=== PATIENT | male | born 1995 | race American Indian/Alaskan Native ===

== ENCOUNTER 2016-11-13 02:43 | Observation (INO) | payer MEDICAID, OTHER ==
[2016-11-13 03:00] VITALS: BMI 23.3
--- NOTE | 2016-11-13 03:42 | ED PDOC ---
Arrival/HPI - General Chief Complaint: Upper Extremity Problem/Injury Time Seen by Provider: 11/13/16 02:57 Historian: Patient - History of Present Illness Narrative History of Present Illness (Text): 11/13/16 03:35 Kenyatta Chaves is a 21 year old male who presents to the emergency department complaining of pain and swelling to the left elbow since yesterday. Reports that symptoms presented after possible spider bite to the area. Reports that he drained some pus from the area and notes that pain is worsened with extension of elbow and movement. Denies any fever, chills, headache, dizziness, numbness/weakness of extremity, nausea, vomiting, diarrhea, or any other complaints. Time/Duration: 24 hours Symptom Onset: Sudden Symptom Course: Worsening Severity Level: Mild Activities at Onset: Light Context: Home Past Medical History - Provider Review Nursing Documentation Reviewed: Yes - Cardiac Hx Cardiac Disorders: No - Pulmonary Hx Respiratory Disorders: No - Neurological Hx Neurological Disorder: No - HEENT Hx HEENT Disorder: No - Renal Hx Renal Disorder: No - Endocrine/Metabolic Hx Endocrine Disorders: No - Hematological/Oncological Hx Blood Disorders: No - Integumentary Hx Dermatological Disorder: No - Musculoskeletal/Rheumatological Hx Musculoskeletal Disorders: No - Gastrointestinal Hx Gastrointestinal Disorders: No - Genitourinary/Gynecological Hx Genitourinary Disorders: No - Psychiatric Hx Psychophysiologic Disorder: No Hx Substance Use: No - Anesthesia Hx Anesthesia: No Hx Anesthesia Reactions: No Family/Social History - Physician Review Nursing Documentation Reviewed: Yes Family/Social History: No Known Family HX Smoking Status: Never Smoked Hx Alcohol Use: Yes Frequency of alcohol use: Socially Hx Substance Use: No Allergies/Home Meds Allergies/Adverse Reactions: Allergies No Known Allergies Allergy (Verified 11/13/16 03:05) Review of Systems - Physician Review All systems were reviewed & negative as marked: Yes - Review of Systems Constitutional: Normal. absent: Fatigue, Fevers Respiratory: Normal. absent: SOB, Cough Cardiovascular: Normal. absent: Chest Pain, Palpitations Genitourinary Male: Normal Musculoskeletal: Other (left elbow pain, erythema and swelling ) Neurological: Normal. absent: Headache, Dizziness Psychiatric: Normal Physical Exam Vital Signs Reviewed: Yes Vital Signs Temp Pulse Resp BP Pulse Ox 11/13/16 06:00 97.5 F L 80 17 125/79 99 11/13/16 04:53 98.6 F 78 15 122/80 100 11/13/16 03:00 97.9 F 84 16 135/119 H 98 11/13/16 02:59 97.9 F 84 16 135/119 H 98 Temperature: Afebrile Blood Pressure: Hypertensive Pulse: Regular Respiratory Rate: Normal Appearance: Positive for: Well-Appearing, Non-Toxic, Comfortable Pain Distress: None Mental Status: Positive for: Alert and Oriented X 3 - Systems Exam Head: Present: Atraumatic, Normocephalic Pupils: Present: PERRL Extroacular Muscles: Present: EOMI Conjunctiva: Present: Normal Mouth: Present: Moist Mucous Membranes Neck: Present: Normal Range of Motion. No: MIDLINE TENDERNESS, Paraspinal Tenderness Respiratory/Chest: Present: Clear to Auscultation, Good Air Exchange. No: Respiratory Distress, Accessory Muscle Use Cardiovascular: Present: Regular Rate and Rhythm, Normal S1, S2. No: Murmurs Abdomen: Present: Normal Bowel Sounds. No: Tenderness, Distention, Peritoneal Signs, Rebound, Guarding Back: Present: Normal Inspection Upper Extremity: Present: NORMAL PULSES, Swelling, Erythema, Neurovascularly Intact, Other (swelling/erythema/warmth left proximal forearm/elbow tracking to left upper arm/punctate areas left elbow) Lower Extremity: Present: Normal Inspection. No: Edema Neurological: Present: GCS=15, CN II-XII Intact, Speech Normal, Motor Func Grossly Intact, Normal Sensory Function Skin: Present: Warm, Dry, Normal Color. No: Rashes Psychiatric: Present: Alert, Oriented x 3, Normal Insight, Normal Concentration Medical Decision Making ED Course and Treatment: 11/13/16 03:46 Impression: A 21 year old male who presents to the emergency department for evaluation of left arm pain and swelling s/p spider bite yesterday. Plan: -- Labs -- Blood culture -- Reassess and disposition Progress Notes: 11/13/16 05:58 Will administer Vancomycin and Zosyn. Case discussed with Dr. Ch who agrees with the plan to admit patient to hospital for IV antibiotic administration for cellulitis. Accepts patient under hospitalist service. - Lab Interpretations Microbiology Results: Microbiology Results 11/13/16 05:30 Blood Blood Culture - Preliminary NO GROWTH AFTER 48 HOURS Lab Results: 11/13/16 03:40 11/13/16 03:40 Lab Results 11/13/16 03:40: WBC 7.6, RBC 4.88, Hgb 14.4, Hct 40.8 L, MCV 83.6, MCH 29.5, MCHC 35.3, RDW 13.0, Plt Count 252, MPV 10.0, Sodium 141, Potassium 3.9, Chloride 99, Carbon Dioxide 30, Anion Gap 16, BUN 15, Creatinine 0.8, Est GFR ( Amer) > 60, Est GFR (Non-Af Amer) > 60, Random Glucose 100, Calcium 10.0 I have reviewed the lab results: Yes - Medication Orders Current Medication Orders: Discontinued Medications Diphenhydramine HCl (Benadryl) 25 mg PO ONCE ONE Stop: 11/13/16 08:05 Last Admin: 11/13/16 08:26 Dose: 25 MG Piperacillin Sod/Tazobactam Sod (Zosyn 3.375 In Ns 100ml) 100 mls @ 200 mls/hr IV STAT STA PRN Reason: Protocol Stop: 11/13/16 05:33 Last Admin: 11/13/16 05:52 Dose: 200 MLS/HR eMAR Start Stop Document 11/13/16 05:52 RJR (Rec: 11/13/16 05:52 [facility] [id number] Intravenous Solution Start Date 11/13/16 Start Time 05:52 End Date 11/13/16 End time 06:52 Total Infusion Time 60 Vancomycin HCl (Vancomycin 1gm) 250 mls @ 133.333 mls/hr IVPB STAT STA PRN Reason: Protocol Stop: 11/13/16 06:56 Last Admin: 11/13/16 06:16 Dose: 133.333 MLS/HR eMAR Start Stop Document 11/13/16 06:16 RJR (Rec: 11/13/16 06:16 [facility]JR [facility] [id number] Intravenous Solution Start Date 11/13/16 Start Time 06:16 Ceftriaxone Sodium (Rocephin 1 Gram Ivpb) 100 mls @ 100 mls/hr IVPB DAILY RAMEZ PRN Reason: Protocol Last Admin: 11/13/16 09:50 Dose: 100 MLS/HR eMAR Start Stop Document 11/13/16 09:50 MV (Rec: 11/13/16 09:50 MV [id number]) Intravenous Solution Start Date 11/13/16 Start Time 09:50 Vancomycin HCl (Vancomycin 500mg In Ns) 100 mls @ 200 mls/hr IVPB Q12 RAMEZ PRN Reason: Protocol Stop: 11/20/16 18:01 Vancomycin HCl (Vancomycin 1gm) 250 mls @ 167 mls/hr IVPB Q12H RAMEZ PRN Reason: Protocol Ketorolac Tromethamine (Toradol) 15 mg IVP Q4 PRN PRN Reason: Pain, moderate (4-7) Last Admin: 11/13/16 10:05 Dose: 15 MG MAR Pain Assessment Document 11/13/16 10:05 MV (Rec: 11/13/16 10:05 MV [place] [id number]) Pain Reassessment Is this a pain reassessment? No IVP Administration Document 11/13/16 10:05 MV (Rec: 11/13/16 10:05 MV [place] [id number]) Charges for Administration # of IVP Administrations 1 Ondansetron HCl (Zofran Odt) 4 mg PO Q8H PRN PRN Reason: Nausea/Vomiting Pantoprazole Sodium (Protonix Inj) 40 mg IVP DAILY [facility] Last Admin: 11/13/16 09:50 Dose: 40 MG IVP Administration Document 11/13/16 09:50 MV (Rec: 11/13/16 09:50 MV [place] [id number]) Charges for Administration # of IVP Administrations 1 - Scribe Statement The provider has reviewed the documentation as recorded by the Chaz Cochran Provider Attestation: All medical record entries made by the Chaz were at my direction and personally dictated by me. I have reviewed the chart and agree that the record accurately reflects my personal performance of the history, physical exam, medical decision making, and the department course for this patient. I have also personally directed, reviewed, and agree with the discharge instructions and disposition. Disposition/Present on Arrival - Present on Arrival Any Indicators Present on Arrival: No History of DVT/PE: No History of Uncontrolled Diabetes: No Urinary Catheter: No History of Decub. Ulcer: No History Surgical Site Infection Following: None - Disposition Have Diagnosis and Disposition been Completed?: Yes Diagnosis: Cellulitis of left elbow Disposition: HOSPITALIZED Disposition Time: 05:35 Condition: GOOD
[2016-11-13 04:19] LABS: HEMATOCRIT 40.8 % (42.0-52.0); MEAN CELL VOLUME 83.6 fL (80.0-105.0); MEAN CORPUSCULAR HEMOGLOBIN 29.5 pg (25.0-35.0); MEAN CORPUSCULAR HGB CONC 35.3 g/dl (31.0-37.0); WHITE BLOOD COUNT 7.6 10^3/ul (4.5-11.0)
[2016-11-13 04:20] LABS: BLOOD UREA NITROGEN 15 mg/dL (7-21); CARBON DIOXIDE 30 mmol/L (21-33); CHLORIDE 99 mmol/L (95-110); GFR AFRICAN-AMERICAN > 60; GLUCOSE,RANDOM 100 mg/dL (70-110); POTASSIUM 3.9 mmol/L (3.6-5.0); SODIUM 141 mmol/L (132-148)
[2016-11-13 04:54] VITALS: PULSE 78; O2SAT 100
[2016-11-13] MEDS ORDERED: Vancomycin 1gm in NS 250ml 250 ML IVPB STA (05:04)
[2016-11-13] MEDS ORDERED: Piperacillin/Tazobact 3.375 gm 100 ML IV STA (05:04)
--- NOTE | 2016-11-13 05:42 | CP.PCM.HP ---
<Daniella Ashton - Last Filed: 11/13/16 06:41> History of Present Illness - History of Present Illness History of Present Illness: PGY-[address] Ch Admission: L elbow Cellulitis, r/o septic joint, r/o osteomyelitis. Unlikely necrotising fasciitis 21 year old male, Hx of chlamydia, who presents to the emergency department complaining of pain and swelling to the left elbow since yesterday. Reports that symptoms presented after possible spider bite to the area. Pt was asleep, awoken from a sudden pain on L elbow, saw a black house spider near on the wall close to him. Denies brown recruise or black . Pt drained some pus from the area and notes that, in a day, the L elbow pain has spread up his arm, warmth, and "bad pain". The pain is worsened to 9/10 with extension of elbow and movement and vomiting 4 times with digested food. Upon ED arrival, Vital signs stable. CBC and BMP within normal limits. Received blood culture. Treated with vanco and zosyn x 1 at ED ROS - (+) N/V Denies any fever, chills, headache, dizziness, numbness/weakness of extremity , diarrhea, or any other complaints. PMH Chlamydia (may or may not have gonorrhea) 5 years ago PSH None FH Mom, 5 years ago, giving Dad, heart problem SH 3 cigarretts a day x 8 years Hard liquor ([place]) 1 glass per month 2 bags of marijuana per day, not laced All NKDA Med None PMD None. Haven't seen doctor for a long time Present on Admission - Present on Admission Any Indicators Present on Admission: No Past Patient History - Past Social History Smoking Status: Never Smoked - CARDIAC Hx Cardiac Disorders: No - PULMONARY Hx Respiratory Disorders: No - NEUROLOGICAL Hx Neurological Disorder: No - HEENT Hx HEENT Problems: No - RENAL Hx Chronic Kidney Disease: No - ENDOCRINE/METABOLIC Hx Endocrine Disorders: No - HEMATOLOGICAL/ONCOLOGICAL Hx Blood Disorders: No - INTEGUMENTARY Hx Dermatological Problems: No - MUSCULOSKELETAL/RHEUMATOLOGICAL Hx Musculoskeletal Disorders: No - GASTROINTESTINAL Hx Gastrointestinal Disorders: No - GENITOURINARY/GYNECOLOGICAL Hx Genitourinary Disorders: No - PSYCHIATRIC Hx Psychophysiologic Disorder: No Hx Substance Use: No - SURGICAL HISTORY Hx Surgeries: No - ANESTHESIA Hx Anesthesia: No Hx Anesthesia Reactions: No Meds Allergies/Adverse Reactions: Allergies Allergy/AdvReac Type Severity Reaction Status Date / Time No Known Allergies Allergy Verified 11/13/16 03:05 Physical Exam - Constitutional Appears: No Acute Distress - Head Exam Head Exam: ATRAUMATIC, NORMOCEPHALIC - Eye Exam Eye Exam: EOMI, Normal appearance Pupil Exam: NORMAL ACCOMODATION - ENT Exam ENT Exam: Mucous Membranes Moist - Neck Exam Neck exam: Positive for: Normal Inspection. Negative for: Meningismus - Respiratory Exam Respiratory Exam: Clear to Auscultation Bilateral, NORMAL BREATHING PATTERN. absent: Rales, Rhonchi, Wheezes - Cardiovascular Exam Cardiovascular Exam: REGULAR RHYTHM, +S1, +S2. absent: Systolic Murmur - GI/Abdominal Exam GI & Abdominal Exam: Normal Bowel Sounds, Soft. absent: Distended, Firm, Guarding, Rigid, Tenderness - Extremities Exam Extremities exam: Positive for: normal capillary refill, normal inspection, pedal pulses present. Negative for: calf tenderness Additional comments: L elbow: 2 pin-point nodules with mild white scaling. Extremely tender. Increase warmth with erythema. Extension limited by pain. Shoulder ROM limited by elbow pain. - Neurological Exam Neurological exam: Alert, Oriented x3 - Psychiatric Exam Psychiatric exam: Normal Affect, Normal Mood - Skin Skin Exam: Dry, Warm Results - Vital Signs Recent Vital Signs: Last Vital Signs Temp 98.6 F 11/13/16 04:53 Pulse 78 11/13/16 04:53 Resp 15 11/13/16 04:53 BP 122/80 11/13/16 04:53 Pulse Ox 100 11/13/16 04:53 - Labs Result Diagrams: 11/13/16 03:40 11/13/16 03:40 Labs: Laboratory Results - last 24 hr 11/13/16 03:40 WBC 7.6 RBC 4.88 Hgb 14.4 Hct 40.8 L MCV 83.6 MCH 29.5 MCHC 35.3 RDW 13.0 Plt Count 252 MPV 10.0 Sodium 141 Potassium 3.9 Chloride 99 Carbon Dioxide 30 Anion Gap 16 BUN 15 Creatinine 0.8 Est GFR ( Amer) > 60 Est GFR (Non-Af Amer) > 60 Random Glucose 100 Calcium 10.0 Assessment & Plan - Assessment and Plan (Free Text) Plan: 21 year old male, Hx of chlamydia, who presents to the emergency department complaining of pain and swelling to the left elbow since yesterday. L elbow Cellulitis, r/o septic joint, r/o osteomyelitis. Unlikely necrotising fasciitis L elbow cellulitis, r/o septic joint, r/o osteomyelitis - unlikely necrotitizing fascittis - Ortho consult for arthrocentesis - Vanco and ceftriaxone Vomiting, likely vagovasal reaction from pain - Zofran - Clear liquid for now - Toradol PRN Prophylaxis - SCD - protonix S/R/D/w Dr. Ch - Date & Time Date: 11/13/16 Time: 06:28 <Erick Ch MD - Last Filed: 11/13/16 06:58> Results - Vital Signs Recent Vital Signs: Last Vital Signs Temp 98.2 F 11/13/16 06:34 Pulse 78 11/13/16 06:34 Resp 16 11/13/16 06:34 BP 112/78 11/13/16 06:34 Pulse Ox 100 11/13/16 06:34 - Labs Result Diagrams: 11/13/16 03:40 11/13/16 03:40 Attending/Attestation - Attestation I have personally seen and examined this patient.: Yes I have fully participated in the care of the patient.: Yes I have reviewed all pertinent clinical information: Yes Notes (Text): 11/13/16 06:56 -I agree with the above H&P completed by the resident physician. Briefly, the patient is a 21 year old man with a remote history of chlamydia who presents with acute left elbow edema, pain, tenderness and erythema, concerning for possible septic joint. We will start empiric IV Vanco and Ceftriaxone. Also, ortho has been consulted for arthrocentesis in order to further evaluate for septic joint.
[2016-11-13 06:35] VITALS: BP 112/78; RESP 16; TEMP 98.2
[2016-11-13] MEDS ORDERED: cefTRIAXone 1 gm 100 ML IVPB SCH (10:00)
--- NOTE | 2016-11-13 11:29 | RAD ---
PROCEDURE: Radiographs of the left elbow. HISTORY: r/o fracture COMPARISON: No prior. FINDINGS: BONES: Normal. No fracture. JOINTS: Normal. No osteoarthritis. SOFT TISSUES: Normal. JOINT EFFUSION: None. OTHER FINDINGS: None IMPRESSION: Unremarkable radiographs of the left elbow.
--- NOTE | 2016-11-13 11:32 | RAD ---
PROCEDURE: Radiographs of the Left Forearm HISTORY: r/o fx COMPARISON: None available. TECHNIQUE: Frontal and lateral views obtained. FINDINGS: BONES: No fracture or destructive lesion. JOINT SPACES: Unremarkable. OTHER FINDINGS: None. IMPRESSION: Unremarkable radiographs of the left forearm.
--- NOTE | 2016-11-13 15:47 | CP.PCM.CON ---
History of Present Illness - History of Present Illness History of Present Illness: Patient was seen earlier this morning (Around 9 in the morning) 21 year old male with PMH of chlamydial infection came in to [facility] ED because of swelling of his left elbow since yesterday which progressively became worse. He does not recall if he had any insect bites but denies any specific trauma to the area. He also denies injecting with needles. He denies fever or chills, no nausea or vomiting, no chest pain, no SOB, no sore throat, no cough or colds, no abdominal pain, no diarrhea, no dysuria. He denies any animal contacts, no pets at home, no travel outside of [place] in the past 3 months, no travel to wooded areas or bodies of water. Infectious Diseases consult is requested to further evaluate and manage. Review of Systems - Review of Systems All systems: reviewed and no additional remarkable complaints except (as per HPI ) Past Patient History - Past Medical History & Family History Past Medical History?: Yes Pertinent Family History: father has heart disease - Past Social History Smoking Status: Current Some Days Smoker Alcohol: Occasional Drugs: Cannabis Home Situation {Lives}: With Family - CARDIAC Hx Cardiac Disorders: No - PULMONARY Hx Respiratory Disorders: No - NEUROLOGICAL Hx Neurological Disorder: No - HEENT Hx HEENT Problems: No - RENAL Hx Chronic Kidney Disease: No - ENDOCRINE/METABOLIC Hx Endocrine Disorders: No - HEMATOLOGICAL/ONCOLOGICAL Hx Blood Disorders: No - INTEGUMENTARY Hx Dermatological Problems: No - MUSCULOSKELETAL/RHEUMATOLOGICAL Hx Musculoskeletal Disorders: No - GASTROINTESTINAL Hx Gastrointestinal Disorders: No - GENITOURINARY/GYNECOLOGICAL Hx Genitourinary Disorders: No - PSYCHIATRIC Hx Psychophysiologic Disorder: No Hx Substance Use: No - SURGICAL HISTORY Hx Surgeries: No - ANESTHESIA Hx Anesthesia: No Hx Anesthesia Reactions: No Meds Allergies/Adverse Reactions: Allergies Allergy/AdvReac Type Severity Reaction Status Date / Time No Known Allergies Allergy Verified 11/13/16 03:05 - Medications Medications: Current Medications Ceftriaxone Sodium (Rocephin 1 Gram Ivpb) 100 mls @ 100 mls/hr IVPB DAILY RAMEZ PRN Reason: Protocol Ketorolac Tromethamine (Toradol) 15 mg IVP Q4 PRN PRN Reason: Pain, moderate (4-7) Ondansetron HCl (Zofran Odt) 4 mg PO Q8H PRN PRN Reason: Nausea/Vomiting Pantoprazole Sodium (Protonix Inj) 40 mg IVP DAILY RAMEZ Physical Exam - Constitutional Appears: Non-toxic, No Acute Distress - Head Exam Head Exam: NORMAL INSPECTION - ENT Exam ENT Exam: Mucous Membranes Moist - Neck Exam Neck exam: Negative for: Lymphadenopathy, Meningismus - Respiratory Exam Respiratory Exam: Decreased Breath Sounds. absent: Rales, Rhonchi - Cardiovascular Exam Cardiovascular Exam: +S1, +S2 - GI/Abdominal Exam GI & Abdominal Exam: Soft. absent: Tenderness - Extremities Exam Additional comments: left elbow with slightly decreased range of motion; with swelling and erythema over the forearm area and just above the elbow; no note of fluid wave of the elbow joint Results - Vital Signs Recent Vital Signs: Last Vital Signs Temp 98.2 F 11/13/16 06:34 Pulse 78 11/13/16 06:34 Resp 16 11/13/16 06:34 BP 112/78 11/13/16 06:34 Pulse Ox 100 11/13/16 06:34 - Labs Result Diagrams: 11/13/16 03:40 11/13/16 03:40 Assessment & Plan - Assessment and Plan (Free Text) Plan: Assessment Left elbow area skin and skin structure infection (cellulitis), less likely septic arthritis of the joint history of chlamydial infection Plan Patient has been started on Vancomycin and Zosyn pending blood cx Check HIV status of the patient
[2016-11-13] MEDS ORDERED: Vancomycin 500mg in NS 100 ML IVPB SCH (18:00)
[2016-11-13] MEDS ORDERED: Vancomycin 1gm in NS 250ml 250 ML IVPB SCH (18:45)
== END 2016-11-13 14:04 | disposition left against medical advice (07) ==
LOC: ED 02:43 → ERH 05:36 → 3RSO 06:30
PROVIDERS: ADMIT Hospitalist; ATTEND Internal Medicine
DX: L03.114 Cellulitis of left upper limb (principal); R11.2 Nausea with vomiting, unspecified; Z86.19 Personal history of other infectious and parasitic diseases
CPT/HCPCS: 73080; 73090; 80048; 85027; 86140; 87040; 96360; 99283; C9113; G0378; J0696; J1885; J2543

== ENCOUNTER 2016-11-15 20:56 | Observation (INO) | payer MEDICAID, OTHER ==
[2016-11-15 21:11] VITALS: BMI 22.6
[2016-11-15 21:22] VITALS: RESP 18
[2016-11-15] MEDS ORDERED: Piperacillin/Tazobact 3.375 gm 100 ML IVPB STA (21:39)
[2016-11-15] MEDS ORDERED: Vancomycin 1gm in NS 250ml 250 ML IVPB STA (21:39)
--- NOTE | 2016-11-15 22:07 | ED PDOC ---
Arrival/HPI - General Chief Complaint: Upper Extremity Problem/Injury Time Seen by Provider: 11/15/16 21:07 Historian: Patient - History of Present Illness Narrative History of Present Illness (Text): 11/15/16 22:29 21yr old male presents today with continued left elbow pain. pt states he was seen in the ER 2 days ago and admitted for left arm cellulitis. pt signed out AMA and presents today for readmission. pt c/o pain and swelling to left elbow, now with purulent discharge. c/o pain to posterior aspect of elbow; pt denies trauma or injury. pt states swelling to upper arm seems to have improved but the swelling and erythema is now increasing to the forearm. Past Medical History - Provider Review Nursing Documentation Reviewed: Yes - Travel History Have you recently traveled outside [place] w/in the past 3 mons?: No - Infectious Disease Hx of Infectious Diseases: None - Cardiac Hx Cardiac Disorders: No - Pulmonary Hx Respiratory Disorders: No - Neurological Hx Neurological Disorder: No - HEENT Hx HEENT Disorder: No - Renal Hx Renal Disorder: No - Endocrine/Metabolic Hx Endocrine Disorders: No - Hematological/Oncological Hx Blood Disorders: No - Integumentary Hx Dermatological Disorder: No - Musculoskeletal/Rheumatological Hx Musculoskeletal Disorders: No - Gastrointestinal Hx Gastrointestinal Disorders: No - Genitourinary/Gynecological Hx Genitourinary Disorders: No - Psychiatric Hx Psychophysiologic Disorder: No Hx Substance Use: No - Anesthesia Hx Anesthesia: No Hx Anesthesia Reactions: No Family/Social History - Physician Review Nursing Documentation Reviewed: Yes Family/Social History: Unknown Family HX Smoking Status: Light Smoker < 10 Cigarettes Daily Hx Alcohol Use: Yes Frequency of alcohol use: Socially Hx Substance Use: No Substance used: Marijuana Allergies/Home Meds Allergies/Adverse Reactions: Allergies No Known Allergies Allergy (Verified 11/13/16 03:05) Home Medications: Home Meds Medication Instructions Recorded Confirmed No Known Home Med 11/15/16 11/15/16 Review of Systems - Review of Systems Constitutional: absent: Fatigue, Fevers Respiratory: absent: Cough Cardiovascular: absent: Chest Pain Gastrointestinal: absent: Abdominal Pain, Nausea, Vomiting Genitourinary Male: absent: Dysuria Musculoskeletal: Arthralgias Skin: Abscess, Cellulitis Neurological: absent: Headache, Dizziness Psychiatric: absent: Anxiety, Depression Physical Exam Vital Signs Reviewed: Yes Vital Signs Temp Pulse Resp BP Pulse Ox 11/15/16 21:16 98.0 F 92 H 18 116/69 100 Temperature: Afebrile Blood Pressure: Normal Pulse: Regular Respiratory Rate: Normal Appearance: Positive for: Well-Appearing, Non-Toxic, Comfortable Pain Distress: None Mental Status: Positive for: Alert and Oriented X 3 - Systems Exam Head: Present: Atraumatic Mouth: Present: Moist Mucous Membranes Neck: Present: Normal Range of Motion Respiratory/Chest: Present: Clear to Auscultation, Good Air Exchange. No: Respiratory Distress, Accessory Muscle Use Cardiovascular: Present: Regular Rate and Rhythm, Normal S1, S2. No: Murmurs Upper Extremity: Present: NORMAL PULSES, Tenderness (left elbow; + edema, erythema, tenderness and purulent discharge noted from posterior aspect of elbow ; + pain with rom of elbow; sensation and distal pulses intact. erythema and edema extends into forearm), Swelling, Erythema, Neurovascularly Intact, Capillary Refill < 2s. No: Normal ROM, Deformity Skin: Present: Warm, Dry Psychiatric: Present: Alert Medical Decision Making ED Course and Treatment: 11/15/16 22:41 21yr old male with left elbow cellulitis and abscess with pain and swelling. signed out AMA from hospital; presents for readmission. toradol cbc; wnl cmp wnl Vanco and zosyn given IV case discussed with medical laboratory specialist and dr. north. will admit observational status to med/surg for cellulitis/abscess of left elbow. 11/15/16 23:48 impression; cellulitis, abscess elbow admit observational status to med/surg - Lab Interpretations Lab Results: 11/15/16 22:09 11/15/16 22:09 Lab Results 11/15/16 22:09: WBC 6.1, RBC 4.79, Hgb 14.1, Hct 40.3 L, MCV 84.1, MCH 29.4, MCHC 35.0, RDW 13.0, Plt Count 242, MPV 9.1, Gran % 57.1, Lymph % (Auto) 33.4, [place] % (Auto) 7.8 H, Eos % (Auto) 1.5, Baso % (Auto) 0.2, Gran # 3.46, Lymph # 2.0, [place] # 0.5, Eos # 0.1, Baso # 0.01, Sodium 143, Potassium 4.3, Chloride 98 , Carbon Dioxide 30, Anion Gap 19, BUN 19, Creatinine 0.9, Est GFR ( Amer ) > 60, Est GFR (Non-Af Amer) > 60, Random Glucose 84, Calcium 10.7 H, Total Bilirubin 1.5 H, AST 31, ALT 21, Alkaline Phosphatase 70, Total Protein 9.0 H, Albumin 4.8, Globulin 4.1, Albumin/Globulin Ratio 1.2 - Medication Orders Current Medication Orders: Sodium Chloride (Sodium Chloride 0.9%) 1,000 mls @ 100 mls/hr IV .Q10H RAMEZ Ceftriaxone Sodium (Rocephin 1 Gram Ivpb) 100 mls @ 100 mls/hr IVPB DAILY RAMEZ PRN Reason: Protocol Ibuprofen (Motrin Tab) 400 mg PO Q6H PRN PRN Reason: Pain, moderate (4-7) Discontinued Medications Piperacillin Sod/Tazobactam Sod (Zosyn 3.375 In Ns 100ml) 100 mls @ 200 mls/hr IVPB STAT STA PRN Reason: Protocol Stop: 11/15/16 22:08 Last Admin: 11/15/16 22:11 Dose: 200 MLS/HR eMAR Start Stop Document 11/15/16 22:11 [facility] (Rec: 11/15/16 22:11 [id number]) Intravenous Solution Start Date 11/15/16 Start Time 22:11 End Date 11/15/16 End time 22:41 Total Infusion Time 30 Vancomycin HCl (Vancomycin 1gm) 250 mls @ 167 mls/hr IVPB STAT STA PRN Reason: Protocol Stop: 11/15/16 23:08 Last Admin: 11/15/16 22:48 Dose: 167 MLS/HR eMAR Start Stop Document 11/15/16 22:48 [facility] (Rec: 11/15/16 22:49 [id number]) Intravenous Solution Start Date 11/15/16 Start Time 22:48 End Date 11/16/16 End time 00:18 Total Infusion Time 90 Ketorolac Tromethamine (Toradol) 30 mg IVP STAT STA Stop: 11/15/16 22:39 Last Admin: 11/15/16 23:45 Dose: Disposition/Present on Arrival - Present on Arrival Any Indicators Present on Arrival: No History of DVT/PE: No History of Uncontrolled Diabetes: No Urinary Catheter: No History of Decub. Ulcer: No History Surgical Site Infection Following: None - Disposition Have Diagnosis and Disposition been Completed?: Yes Diagnosis: Cellulitis of left elbow, Abscess Disposition: HOSPITALIZED Disposition Time: 22:06 Patient Plan: Admission Patient Problems: Current Active Problems Problem Status Diagnosed Cellulitis of left elbow Acute Condition: FAIR
[2016-11-15 22:10] LABS: ADD MANUAL DIFF? NO
[2016-11-15 22:22] LABS: BASO # 0.01 K/mm3 (0.0-2.0); BASO % 0.2 % (0.0-3.0); EOS # 0.1 (0.0-0.7); EOS % 1.5 % (1.5-5.0); GRAN # 3.46 (1.4-6.5); GRAN % 57.1 % (50.0-68.0); HEMATOCRIT 40.3 % (42.0-52.0); LYMPH % 33.4 % (22.0-35.0); MEAN CELL VOLUME 84.1 fL (80.0-105.0); MEAN CORPUSCULAR HEMOGLOBIN 29.4 pg (25.0-35.0); MEAN PLATELET VOLUME 9.1 fl (7.0-11.0); MONO # 0.5 (0.1-0.6); MONO % 7.8 % (1.0-6.0); PLATELET COUNT 242 10^3/uL (120.0-450.0); WHITE BLOOD COUNT 6.1 10^3/ul (4.5-11.0)
[2016-11-15 22:27] LABS: ALB/GLOB RATIO 1.2 (1.1-1.8); ALKALINE PHOSPHATASE 70 U/L (38-133); ALT/SGPT 21 U/L (7-56); AST/SGOT 31 U/L (15-59); BILIRUBIN,TOTAL 1.5 mg/dL (0.2-1.3); BLOOD UREA NITROGEN 19 mg/dL (7-21); CALCIUM 10.7 mg/dL (8.4-10.5); CARBON DIOXIDE 30 mmol/L (21-33); CHLORIDE 98 mmol/L (98-107); GFR AFRICAN-AMERICAN > 60; GLUCOSE,RANDOM 84 mg/dL (70-110); POTASSIUM 4.3 mmol/L (3.6-5.0); SODIUM 143 mmol/L (132-148)
--- NOTE | 2016-11-15 23:43 | CP.PCM.HP ---
<Ricci Ordaz - Last Filed: 11/15/16 23:39> History of Present Illness - History of Present Illness History of Present Illness: This is a 21 yo male with remote hx of chlamydia presenting with left elbow pain x 4 days. Pt woke up sravan morning with soreness and some redness to left elbow. Pt thinks spider may have bitten him. Pain and redness were getting worse along with swelling and some swelling to upper left arm. Pt had subjective fever, and some chills. He came into ER and was admitted to hospital. He was started on vanco and rocephin. However, pt left ama because brother . Pt was at home and felt the elbow was getting better and starting to cool off. He used home remedy of flour mixed with milk as he saw this on internet. However, swelling and pain was getting worse and he returned to ER. No trauma, no recent travel, no travel to wooded areas. Denies vomiting, chest pain, drug use, other systemic sx. PMH: chlamydia PSH: None Allergies: NKDA FH: denies Home meds: none Social hx: current smoker. 3 cigs/ day. For 1 yr. Social drinker. Marijuana user. Past use of percocet. Does not work. Lives with sister. Present on Admission - Present on Admission Any Indicators Present on Admission: No History of DVT/PE: No History of Uncontrolled Diabetes: No Urinary Catheter: No Decubitus Ulcer Present: No Review of Systems - Review of Systems All systems: reviewed and no additional remarkable complaints except Review of Systems: Negative except as per HPI. Past Patient History - Infectious Disease Hx of Infectious Diseases: None - Tetanus Immunizations Tetanus Immunization: Unknown - Past Medical History & Family History Past Medical History?: Yes Past Family History: Reviewed and not pertinent - Past Social History Smoking Status: Light Smoker < 10 Cigarettes Daily Chewing Tobacco Use: No Cigar Use: No Alcohol: Social Drugs: Cannabis Home Situation {Lives}: With Family Domestic Violence: Negative - CARDIAC Hx Cardiac Disorders: No - PULMONARY Hx Respiratory Disorders: No - NEUROLOGICAL Hx Neurological Disorder: No - HEENT Hx HEENT Problems: No - RENAL Hx Chronic Kidney Disease: No - ENDOCRINE/METABOLIC Hx Endocrine Disorders: No - HEMATOLOGICAL/ONCOLOGICAL Hx Blood Disorders: No - INTEGUMENTARY Hx Dermatological Problems: No - MUSCULOSKELETAL/RHEUMATOLOGICAL Hx Musculoskeletal Disorders: No - GASTROINTESTINAL Hx Gastrointestinal Disorders: No - GENITOURINARY/GYNECOLOGICAL Hx Genitourinary Disorders: No - PSYCHIATRIC Hx Psychophysiologic Disorder: No Hx Substance Use: No - SURGICAL HISTORY Hx Surgeries: No - ANESTHESIA Hx Anesthesia: No Hx Anesthesia Reactions: No Meds Allergies/Adverse Reactions: Allergies Allergy/AdvReac Type Severity Reaction Status Date / Time No Known Allergies Allergy Verified 11/13/16 03:05 Physical Exam - Constitutional Appears: Non-toxic, No Acute Distress - Head Exam Head Exam: ATRAUMATIC, NORMAL INSPECTION, NORMOCEPHALIC - Eye Exam Eye Exam: EOMI - ENT Exam ENT Exam: Mucous Membranes Moist - Neck Exam Neck exam: Positive for: Normal Inspection - Respiratory Exam Respiratory Exam: Clear to Auscultation Bilateral, NORMAL BREATHING PATTERN - Cardiovascular Exam Cardiovascular Exam: REGULAR RHYTHM - GI/Abdominal Exam GI & Abdominal Exam: Normal Bowel Sounds, Soft. absent: Tenderness - Extremities Exam Extremities exam: Positive for: tenderness. Negative for: normal inspection - Back Exam Back exam: NORMAL INSPECTION - Neurological Exam Neurological exam: Alert, Oriented x3 - Psychiatric Exam Psychiatric exam: Normal Affect, Normal Mood - Skin Skin Exam: Erythema Additional comments: Cellulitis with abscess left elbow, minimal swelling left forearm, pain with movement of left elbow and arm Results - Vital Signs Recent Vital Signs: Last Vital Signs Temp 98.0 F 11/15/16 21:16 Pulse 92 H 11/15/16 21:16 Resp 18 11/15/16 21:16 BP 116/69 11/15/16 21:16 Pulse Ox 100 11/15/16 21:16 - Labs Result Diagrams: 11/15/16 22:09 11/15/16 22:09 Labs: Laboratory Results - last 24 hr 11/15/16 22:09 WBC 6.1 RBC 4.79 Hgb 14.1 Hct 40.3 L MCV 84.1 MCH 29.4 MCHC 35.0 RDW 13.0 Plt Count 242 MPV 9.1 Gran % 57.1 Lymph % (Auto) 33.4 [place] % (Auto) 7.8 H Eos % (Auto) 1.5 Baso % (Auto) 0.2 Gran # 3.46 Lymph # 2.0 [place] # 0.5 Eos # 0.1 Baso # 0.01 Sodium 143 Potassium 4.3 Chloride 98 Carbon Dioxide 30 Anion Gap 19 BUN 19 Creatinine 0.9 Est GFR ( Amer) > 60 Est GFR (Non-Af Amer) > 60 Random Glucose 84 Calcium 10.7 H Total Bilirubin 1.5 H AST 31 ALT 21 Alkaline Phosphatase 70 Total Protein 9.0 H Albumin 4.8 Globulin 4.1 Albumin/Globulin Ratio 1.2 Assessment & Plan - Assessment and Plan (Free Text) Assessment: This is a 21 yo male with pmh chlamydia presenting with elbow pain and erythema secondary to cellulitis and abscess 1. Cellulitis/abscess -warm compresses q 2 hrs for 15 mins -NS 100 cc/hr -rocephin 1 g daily -joint does not appear septic; if concern arises, will consult ortho -regular diet -ibuprofen for pain 2. GI/DVT ppx -no indicated at this time -regular diet -encourage early ambulation dw Dr. Luther <Eddie Luther Q - Last Filed: 11/19/16 19:32> Results - Vital Signs Recent Vital Signs: Last Vital Signs Temp 97.8 F 11/16/16 08:45 Pulse 70 11/16/16 08:45 Resp 18 11/16/16 08:45 BP 116/72 11/16/16 08:45 Pulse Ox 95 11/16/16 08:45 - Labs Result Diagrams: 11/15/16 22:09 11/15/16 22:09 Attending/Attestation - Attestation I have personally seen and examined this patient.: Yes I have fully participated in the care of the patient.: Yes I have reviewed all pertinent clinical information: Yes
[2016-11-15] MEDS ORDERED: Sodium Chloride 0.9% 1,000 ML IV SCH (23:45)
[2016-11-16 02:08] VITALS: TEMP 97.8
[2016-11-16 08:46] VITALS: BP 116/72; PULSE 70; O2SAT 95
[2016-11-16] MEDS ORDERED: cefTRIAXone 1 gm 100 ML IVPB SCH (10:00)
[2016-11-16] MEDS ORDERED: Vancomycin 1gm in NS 250ml 250 ML IVPB SCH (10:15)
[2016-11-16] MEDS ORDERED: Ampicillin/Sulbactam 3 GM in Sodium Chloride 0.9% 100 ML IVPB SCH (12:00)
--- NOTE | 2016-11-16 14:06 | CP.PCM.CON ---
History of Present Illness - History of Present Illness History of Present Illness: 21 year old male with PMH of chlamydial infection was recently admitted here in [facility] because of left elbow area cellulitis 2 days ago. He was being given antibiotics then but he signed out against medical advice. He now comes back to have it treated and has noted since then that there is now discharge and pus-looking material coming out. He denies fever or chills, no new trauma to the area, no pets at home, no travel outside of [place] in the past 3 months, no travel to wooded areas or bodies of water. He does not complain of nausea or vomiting, no chest pain, no SOB, no sore throat, no cough or colds, no abdominal pain, no diarrhea, no dysuria. Infectious Diseases consult is requested to further evaluate and manage. Review of Systems - Review of Systems All systems: reviewed and no additional remarkable complaints except (as per HPI ) Past Patient History - Infectious Disease Hx of Infectious Diseases: None - Tetanus Immunizations Tetanus Immunization: Unknown - Past Medical History & Family History Past Medical History?: Yes Past Family History: Reviewed and not pertinent - Past Social History Smoking Status: Light Smoker < 10 Cigarettes Daily Alcohol: None Drugs: Denies Home Situation {Lives}: With Family - CARDIAC Hx Cardiac Disorders: No - PULMONARY Hx Respiratory Disorders: No - NEUROLOGICAL Hx Neurological Disorder: No - HEENT Hx HEENT Problems: No - RENAL Hx Chronic Kidney Disease: No - ENDOCRINE/METABOLIC Hx Endocrine Disorders: No - HEMATOLOGICAL/ONCOLOGICAL Other/Comment: Chlamydia - INTEGUMENTARY Hx Dermatological Problems: No - MUSCULOSKELETAL/RHEUMATOLOGICAL Hx Falls: No - GASTROINTESTINAL Hx Gastrointestinal Disorders: No - GENITOURINARY/GYNECOLOGICAL Hx Genitourinary Disorders: No - PSYCHIATRIC Hx Substance Use: Yes (Marijuana.) - SURGICAL HISTORY Hx Surgeries: No - ANESTHESIA Hx Anesthesia: No Hx Anesthesia Reactions: No Meds Home Medications: Home Medication List Medication Instructions Recorded Confirmed Type Amoxicillin/Clavulanate [Augmentin 1 tab PO Q12H #20 tab 11/16/16 Rx 500 MG-125 MG] Doxycycline Monohydrate 100 mg PO DAILY #10 tablet 11/16/16 Rx Allergies/Adverse Reactions: Allergies Allergy/AdvReac Type Severity Reaction Status Date / Time No Known Allergies Allergy Verified 11/13/16 03:05 - Medications Medications: Current Medications Sodium Chloride (Sodium Chloride 0.9%) 1,000 mls @ 100 mls/hr IV .Q10H [facility] Last Admin: 11/15/16 23:45 Dose: 100 mls/hr Ampicillin Sodium/Sulbactam (Sodium 3 gm/ Sodium Chloride) 100 mls @ 200 mls/ hr IVPB Q6 RAMEZ PRN Reason: Protocol Stop: 11/23/16 12:01 Vancomycin HCl (Vancomycin 1gm) 250 mls @ 167 mls/hr IVPB Q12H RAMEZ PRN Reason: Protocol Ibuprofen (Motrin Tab) 400 mg PO Q6H PRN PRN Reason: Pain, moderate (4-7) Physical Exam - Constitutional Appears: Non-toxic, No Acute Distress - Head Exam Head Exam: NORMAL INSPECTION - ENT Exam ENT Exam: Mucous Membranes Moist - Neck Exam Neck exam: Negative for: Lymphadenopathy, Meningismus - Respiratory Exam Respiratory Exam: Decreased Breath Sounds - Cardiovascular Exam Cardiovascular Exam: +S1, +S2 - GI/Abdominal Exam GI & Abdominal Exam: Soft. absent: Tenderness - Extremities Exam Additional comments: left elbow with dressings in place; note of some serosanguinous discharge from the area Results - Vital Signs Recent Vital Signs: Last Vital Signs Temp 97.8 F 11/16/16 08:45 Pulse 70 11/16/16 08:45 Resp 18 11/16/16 08:45 BP 116/72 11/16/16 08:45 Pulse Ox 95 11/16/16 08:45 - Labs Result Diagrams: 11/15/16 22:09 11/15/16 22:09 Assessment & Plan - Assessment and Plan (Free Text) Plan: Assessment Left elbow area skin and skin structure infection (cellulitis), purulent history of chlamydial infection Plan Patient has been started on Vancomycin and Unasyn pending blood cx, wound cx HIV status of the patient is negative Will monitor clinical response while the patient is in the hospital
--- NOTE | 2016-11-16 15:52 | CP.PCM.DIS ---
<Tashi Washington - Last Filed: 11/16/16 15:59> Provider - Provider Date of Admission: 11/15/16 23:34 Attending physician: Paty Quintanilla MD Consults: LIAM - Dr. Genao Time Spent in preparation of Discharge (in minutes): 45 Diagnosis - Discharge Diagnosis (1) Cellulitis of left elbow Status: Acute Priority: Medium Hospital Course - Lab Results Lab Results: Micro Results 11/16/16 09:00 Elbow - Left Gram Stain - Preliminary Most Recent Lab Values WBC 6.1 10^3/ul (4.5-11.0) 11/15/16 22:09 RBC 4.79 10^6/uL (3.5-6.1) 11/15/16 22:09 Hgb 14.1 gm/dL (14.0-18.0) 11/15/16 22:09 Hct 40.3 % (42.0-52.0) L 11/15/16 22:09 MCV 84.1 fL (80.0-105.0) 11/15/16 22:09 MCH 29.4 pg (25.0-35.0) 11/15/16 22:09 MCHC 35.0 g/dl (31.0-37.0) 11/15/16 22:09 RDW 13.0 % (11.5-14.5) 11/15/16 22:09 Plt Count 242 10^3/uL (120.0-450.0) 11/15/16 22:09 MPV 9.1 fl (7.0-11.0) 11/15/16 22:09 Gran % 57.1 % (50.0-68.0) 11/15/16 22:09 Lymph % (Auto) 33.4 % (22.0-35.0) 11/15/16 22:09 [place] % (Auto) 7.8 % (1.0-6.0) H 11/15/16 22:09 Eos % (Auto) 1.5 % (1.5-5.0) 11/15/16 22:09 Baso % (Auto) 0.2 % (0.0-3.0) 11/15/16 22:09 Gran # 3.46 (1.4-6.5) 11/15/16 22:09 Lymph # 2.0 (1.2-3.4) 11/15/16 22:09 [place] # 0.5 (0.1-0.6) 11/15/16 22:09 Eos # 0.1 (0.0-0.7) 11/15/16 22:09 Baso # 0.01 K/mm3 (0.0-2.0) 11/15/16 22:09 ESR 23 mm/hr (0.0-15.0) H 11/15/16 22:09 Sodium 143 mmol/L (132-148) 11/15/16 22:09 Potassium 4.3 mmol/L (3.6-5.0) 11/15/16 22:09 Chloride 98 mmol/L (98-107) 11/15/16 22:09 Carbon Dioxide 30 mmol/L (21-33) 11/15/16 22:09 Anion Gap 19 (10-20) 11/15/16 22:09 BUN 19 mg/dL (7-21) 11/15/16 22:09 Creatinine 0.9 mg/dL (0.5-1.4) 11/15/16 22:09 Est GFR ( Amer) > 60 11/15/16 22:09 Est GFR (Non-Af Amer) > 60 11/15/16 22:09 Random Glucose 84 mg/dL (70-110) 11/15/16 22:09 Calcium 10.7 mg/dL (8.4-10.5) H 11/15/16 22:09 Total Bilirubin 1.5 mg/dL (0.2-1.3) H 11/15/16 22:09 AST 31 U/L (15-59) 11/15/16 22:09 ALT 21 U/L (7-56) 11/15/16 22:09 Alkaline Phosphatase 70 U/L (38-133) 11/15/16 22:09 Total Protein 9.0 g/dL (5.8-8.3) H 11/15/16 22:09 Albumin 4.8 g/dL (3.0-4.8) 11/15/16 22:09 Globulin 4.1 gm/dL 11/15/16 22:09 Albumin/Globulin Ratio 1.2 (1.1-1.8) 11/15/16 22:09 - Hospital Course Hospital Course: 21 y/o M with PMH of chlamydia presenting with left elbow pain for the past 4 days. Pt woke up saturday morning with soreness and some redness to left elbow. Pt thinks spider may have bitten him. Pain and redness were getting worse along with swelling and some swelling to upper left arm. Pt had subjective fever, and some chills. He came into ER and was admitted to hospital. He was started on vanco and rocephin. However, pt left ama because brother . During his time at home, pt states elbow pain and swelling has slightly improved. Pt received a dose of Vancomycin and Zosyn in the ED. Pt seen by Dr. Genao who placed pt on Unasyn and Vancomycin. Pt stated he had to leave AMA because it was his brothers tomorrow. Pt was given a script for augmentin and doxycycline for 10 days. Appropriate paperwork was filled out and signed. Pt was informed of risks and complications of leaving AMA. Pt told to return to hospital if worsening symptoms, increased swelling, decreased mobility , or high fever. Discharge Exam - Head Exam Head Exam: ATRAUMATIC, NORMAL INSPECTION, NORMOCEPHALIC - ENT Exam ENT Exam: Mucous Membranes Moist, Normal Exam - Respiratory Exam Respiratory Exam: NORMAL BREATHING PATTERN, UNREMARKABLE. absent: Rhonchi, Wheezes - Cardiovascular Exam Cardiovascular Exam: RRR, +S1, +S2 - GI/Abdominal Exam GI & Abdominal Exam: Normal Bowel Sounds, Soft. absent: Tenderness - Extremities Exam Additional comments: Left elbow edematous. No erythema. Draining. Bandaged, dry and intact. - Neurological Exam Neurological exam: Alert, CN II-XII Intact, Oriented x3 - Psychiatric Exam Psychiatric exam: Normal Affect, Normal Mood - Skin Skin Exam: Intact, Normal Color, Warm Discharge Plan - Discharge Medications Prescriptions: Amoxicillin/Clavulanate [Augmentin 500 MG-125 MG] 1 tab PO Q12H #20 tab Doxycycline Monohydrate 100 mg PO DAILY #10 tablet - Follow Up Plan Condition: FAIR Disposition: HOME/ ROUTINE Instructions: Cellulitis (DC), Cellulitis (GEN) Additional Instructions: Pt left AMA. To return if worsening of symptoms <Paty Quintanilla - Last Filed: 11/16/16 16:27> Provider - Provider Date of Admission: 11/15/16 23:34 Attending physician: Paty Quintanilla MD Hospital Course - Lab Results Lab Results: Micro Results 11/16/16 09:00 Elbow - Left Gram Stain - Preliminary Most Recent Lab Values WBC 6.1 10^3/ul (4.5-11.0) 11/15/16 22:09 RBC 4.79 10^6/uL (3.5-6.1) 11/15/16 22:09 Hgb 14.1 gm/dL (14.0-18.0) 11/15/16 22:09 Hct 40.3 % (42.0-52.0) L 11/15/16 22:09 MCV 84.1 fL (80.0-105.0) 11/15/16 22:09 MCH 29.4 pg (25.0-35.0) 11/15/16 22:09 MCHC 35.0 g/dl (31.0-37.0) 11/15/16 22:09 RDW 13.0 % (11.5-14.5) 11/15/16 22:09 Plt Count 242 10^3/uL (120.0-450.0) 11/15/16 22:09 MPV 9.1 fl (7.0-11.0) 11/15/16 22:09 Gran % 57.1 % (50.0-68.0) 11/15/16 22:09 Lymph % (Auto) 33.4 % (22.0-35.0) 11/15/16 22:09 [place] % (Auto) 7.8 % (1.0-6.0) H 11/15/16 22:09 Eos % (Auto) 1.5 % (1.5-5.0) 11/15/16 22:09 Baso % (Auto) 0.2 % (0.0-3.0) 11/15/16 22:09 Gran # 3.46 (1.4-6.5) 11/15/16 22:09 Lymph # 2.0 (1.2-3.4) 11/15/16 22:09 [place] # 0.5 (0.1-0.6) 11/15/16 22:09 Eos # 0.1 (0.0-0.7) 11/15/16 22:09 Baso # 0.01 K/mm3 (0.0-2.0) 11/15/16 22:09 ESR 23 mm/hr (0.0-15.0) H 11/15/16 22:09 Sodium 143 mmol/L (132-148) 11/15/16 22:09 Potassium 4.3 mmol/L (3.6-5.0) 11/15/16 22:09 Chloride 98 mmol/L (98-107) 11/15/16 22:09 Carbon Dioxide 30 mmol/L (21-33) 11/15/16 22:09 Anion Gap 19 (10-20) 11/15/16 22:09 BUN 19 mg/dL (7-21) 11/15/16 22:09 Creatinine 0.9 mg/dL (0.5-1.4) 11/15/16 22:09 Est GFR ( Amer) > 60 11/15/16 22:09 Est GFR (Non-Af Amer) > 60 11/15/16 22:09 Random Glucose 84 mg/dL (70-110) 11/15/16 22:09 Calcium 10.7 mg/dL (8.4-10.5) H 11/15/16 22:09 Total Bilirubin 1.5 mg/dL (0.2-1.3) H 11/15/16 22:09 AST 31 U/L (15-59) 11/15/16 22:09 ALT 21 U/L (7-56) 11/15/16 22:09 Alkaline Phosphatase 70 U/L (38-133) 11/15/16 22:09 Total Protein 9.0 g/dL (5.8-8.3) H 11/15/16 22:09 Albumin 4.8 g/dL (3.0-4.8) 11/15/16 22:09 Globulin 4.1 gm/dL 11/15/16 22:09 Albumin/Globulin Ratio 1.2 (1.1-1.8) 11/15/16 22:09 Attending/Attestation - Attestation I have personally seen and examined this patient.: Yes I have fully participated in the care of the patient.: Yes I have reviewed all pertinent clinical information, including history, physical exam and plan: Yes Notes (Text): 11/16/16 16:23 21 year old male who was recently admitted for left elbow cellulitis earlier this week but signed out AMA due to some family emergency returned last night again with left elbow pain. He was admitted for cellulitis/abscess which was draining. Wound culture was sent to lab. He was on iv antibiotics and seen by ID. Today he again stated he wanted to sign out against medical advise for a tomorrow. He was explained the risks of signing out AMA. He was prescribed augmentin and doxycycline prior to leaving and told to return to hospital if worsening symptoms, increased swelling, decreased ROM, or fever. Paty Quintanilla MD Hospitalist.
== END 2016-11-16 13:49 | disposition left against medical advice (07) ==
LOC: ED 20:56 → ERH 23:34 → 3RNO 11-16 01:06
PROVIDERS: ADMIT Internal Medicine; ATTEND Internal Medicine
DX: L03.114 Cellulitis of left upper limb (principal); L02.414 Cutaneous abscess of left upper limb; B95.62 Methicillin resistant Staphylococcus aureus infection as the cause of diseases classified elsewhere; F17.210 Nicotine dependence, cigarettes, uncomplicated; F12.90 Cannabis use, unspecified, uncomplicated; Z86.19 Personal history of other infectious and parasitic diseases
CPT/HCPCS: 80053; 85025; 85651; 87070; 87181; 96361; 96365; 96367; 99283; G0378; J2543; J7040

== ENCOUNTER 2017-05-12 22:50 | Emergency (ER) | payer MEDICAID, OTHER ==
[2017-05-12 22:50] VITALS: BMI 22.6
[2017-05-12 23:58] VITALS: BP 139/89; PULSE 78; RESP 18; TEMP 98.1; O2SAT 99
[2017-05-13] MEDS ORDERED: cefTRIAXone (Rocephin) 250 mg Inj IM STA (00:18)
--- NOTE | 2017-05-13 01:31 | ED PDOC ---
Arrival/HPI - General Chief Complaint: Male Genitourinary Time Seen by Provider: 05/12/17 23:09 Historian: Patient - History of Present Illness Narrative History of Present Illness (Text): 05/13/17 01:31 22-year-old male presents to emergency room complaining of 5 day history of dysuria and green urethral discharge. Denies any fever, chills, abdominal pain, nausea, vomiting, back pain, hematuria, scrotal pain / swelling. Otherwise has no other complaints. Past Medical History - Provider Review Nursing Documentation Reviewed: Yes - Infectious Disease Hx of Infectious Diseases: None - Tetanus Immunization Tetanus Immunization: Unknown - Cardiac Hx Cardiac Disorders: No - Pulmonary Hx Respiratory Disorders: No - Neurological Hx Neurological Disorder: No - HEENT Hx HEENT Disorder: No - Renal Hx Renal Disorder: No - Endocrine/Metabolic Hx Endocrine Disorders: No - Hematological/Oncological Other/Comment: Chlamydia - Integumentary Hx Dermatological Disorder: No - Musculoskeletal/Rheumatological Hx Falls: No - Gastrointestinal Hx Gastrointestinal Disorders: No - Genitourinary/Gynecological Hx Genitourinary Disorders: No - Psychiatric Hx Psychophysiologic Disorder: No Hx Substance Use: Yes (mj this am) - Anesthesia Hx Anesthesia: No Hx Anesthesia Reactions: No Family/Social History - Physician Review Nursing Documentation Reviewed: Yes Family/Social History: No Known Family HX Smoking Status: Never Smoked Hx Alcohol Use: Yes (Ocasionally) Frequency of alcohol use: Socially Hx Substance Use: Yes (mj this am) Substance used: Marijuana Allergies/Home Meds Allergies/Adverse Reactions: Allergies No Known Allergies Allergy (Verified 11/13/16 03:05) Review of Systems - Review of Systems Constitutional: Normal. absent: Fatigue, Weight Change, Fevers Respiratory: Normal. absent: SOB, Cough, Sputum Cardiovascular: Normal. absent: Chest Pain, Palpitations, Edema Gastrointestinal: Normal. absent: Abdominal Pain, Stool Changes, Appetite Changes Genitourinary Male: Normal, Dysuria, Other (urethral d/c). absent: Frequency, Hematuria Musculoskeletal: Normal. absent: Arthralgias, Back Pain, Neck Pain Skin: Normal. absent: Rash, Pruritis, Skin Lesions Physical Exam Vital Signs Reviewed: Yes Vital Signs Temp Pulse Resp BP Pulse Ox 05/12/17 23:57 98.1 F 78 18 139/89 99 Temperature: Afebrile Blood Pressure: Normal Pulse: Regular Respiratory Rate: Normal Appearance: Positive for: Well-Appearing, Non-Toxic, Comfortable Pain Distress: None Mental Status: Positive for: Alert and Oriented X 3 - Systems Exam Head: Present: Atraumatic, Normocephalic Neck: Present: Normal Range of Motion. No: Meningeal Signs, MIDLINE TENDERNESS Respiratory/Chest: Present: Clear to Auscultation, Good Air Exchange. No: Respiratory Distress, Wheezes, Rhonchi Cardiovascular: Present: Regular Rate and Rhythm, Murmurs, Normal S1, S2 Abdomen: Present: Normal Bowel Sounds. No: Tenderness, Distention, Peritoneal Signs, Rebound, Guarding Genitourinary Male: Present: Other (deferred by patient) Lower Extremity: Present: Normal Inspection, NORMAL PULSES, Normal ROM, Capillary Refill < 2 s. No: Edema, Tenderness, Swelling Skin: Present: Warm, Dry, Normal Color. No: Rashes Lymphatic: Present: Inguinal Adenopathy Psychiatric: Present: Alert, Oriented x 3, Normal Insight, Normal Concentration Medical Decision Making ED Course and Treatment: 05/13/17 01:06 22-year-old male presents to emergency room complaining of 5 day history of green urethral discharge. Plan: - GC cx - Rocephin 250 mg IM - Zithromax 1 g PO Patient notified of likely diagnosis of urethritis, and that the likely cause can be either gonorrhea or chlamydia or possibly both. Patient advised to refrain from any type of sexual activity for the next 2 weeks, instructed to have his recent partners tested and treated as well. Otherwise to follow up with primary care physician or the clinic in 1-2 days without fail. Advised to take medication as prescribed. Return to the emergency room at any time for any new or worsening symptoms. Patient states he fully agrees with and understands discharge instructions. States that he agrees with the plan and disposition. Verbalized and repeated discharge instructions and plan. I have given the patient opportunity to ask any additional questions. - Medication Orders Current Medication Orders: Discontinued Medications Azithromycin (Zithromax) 1,000 mg PO STAT STA PRN Reason: Protocol Stop: 05/13/17 00:19 Last Admin: 05/13/17 00:57 Dose: 1,000 mg Ceftriaxone Sodium (Rocephin) 250 mg IM STAT STA PRN Reason: Protocol Stop: 05/13/17 00:19 Last Admin: 05/13/17 00:57 Dose: 250 mg IM Administration Charges Document 05/13/17 00:57 RIVKA (Rec: 05/13/17 00:57 RIVKA [facility] [id number]) Injection Site MAR Injection Site Right Gluteus Rajan Charges for Administration # of IM Administrations 1 - PA / SALES PRODUCER / Resident Statement MD/DO has reviewed & agrees with the documentation as recorded. Disposition/Present on Arrival - Present on Arrival Any Indicators Present on Arrival: No History of DVT/PE: No History of Uncontrolled Diabetes: No Urinary Catheter: No History of Decub. Ulcer: No History Surgical Site Infection Following: None - Disposition Have Diagnosis and Disposition been Completed?: Yes Diagnosis: Urethritis Disposition: HOME/ ROUTINE Disposition Time: 00:20 Patient Plan: Discharge Patient Problems: Current Active Problems Problem Status Onset Urethritis Acute Condition: STABLE Discharge Instructions (ExitCare): Nonspecific Urethritis in Men (ED) Print Language: SWEDISH Additional Instructions: Thank you for letting us take care of you today. You were treated for urethritis. The emergency medical care you received today was directed at your acute symptoms. Please notify your most recent partners, so they can be tested and treated. It may take several days for your symptoms to resolve. Return to the Emergency Department if your symptoms worsen, do not improve, or if you have any other problems. Please contact your doctor in 2 days for re-evaluation and follow up / or call one of the physicians/clinics you have been referred to that are listed on the Patient Visit Information form that is included in your discharge packet. Bring any paperwork you were given at discharge with you along with any medications you are taking to your follow up visit. Our treatment cannot replace ongoing medical care by a primary care provider (PCP) outside of the emergency department. Thank you for allowing the [facility] team to be part of your care today. If you had an STI test: It will take 48 hours for the results. Please call after 1 week if you have not heard back. Referrals: [facility] at [facility] [place] [Outside] - Follow up with primary Forms: [employer] (Chadian), WORK NOTE
== END 2017-05-13 01:10 | disposition home or self-care (01) ==
LOC: ED 22:50
DX: N34.2 Other urethritis (principal)
CPT/HCPCS: 87491; 87591; 96372; 99283; J0696

== ENCOUNTER 2017-08-08 17:54 | Emergency (ER) | payer OTHER ==
[2017-08-08 17:54] VITALS: BMI 22.6
[2017-08-08 18:48] VITALS: PULSE 81; RESP 17; O2SAT 100
[2017-08-08] MEDS ORDERED: cefTRIAXone (Rocephin) 250 mg Inj IM STA (18:51)
--- NOTE | 2017-08-08 18:53 | ED PDOC ---
Arrival/HPI - General Chief Complaint: Male Genitourinary Time Seen by Provider: 08/08/17 18:24 Historian: Patient - History of Present Illness Narrative History of Present Illness (Text): 08/08/17 18:51 22 yo male come in for evaluation of penile discharges associated with mild pain on urination gradually developed for apst 2 days after was had unprotected sexual activity. Otherwise, pt denies fever, chills, sore throat, abd. pain, N/V , back pain, denies penile lesion, testicular swelling or pain. Denies previous hx of STD. Ambulate to Ed for evaluation, not ni any apparent distress. Past Medical History - Provider Review Nursing Documentation Reviewed: Yes - Travel History Have you recently traveled outside [place] w/in the past 3 mons?: No - Past History Past History: No Previous - Infectious Disease Hx of Infectious Diseases: None - Tetanus Immunization Tetanus Immunization: Unknown - Cardiac Hx Cardiac Disorders: No - Pulmonary Hx Respiratory Disorders: No - Neurological Hx Neurological Disorder: No - HEENT Hx HEENT Disorder: No - Renal Hx Renal Disorder: No - Endocrine/Metabolic Hx Endocrine Disorders: No - Hematological/Oncological Other/Comment: Chlamydia - Integumentary Hx Dermatological Disorder: No - Musculoskeletal/Rheumatological Hx Falls: No - Gastrointestinal Hx Gastrointestinal Disorders: No - Genitourinary/Gynecological Hx Genitourinary Disorders: No - Psychiatric Hx Psychophysiologic Disorder: No Hx Substance Use: Yes (mj this am) - Anesthesia Hx Anesthesia: No Hx Anesthesia Reactions: No Family/Social History - Physician Review Nursing Documentation Reviewed: Yes Family/Social History: No Known Family HX Smoking Status: Never Smoked Hx Alcohol Use: Yes (Ocasionally) Hx Substance Use: Yes (mj this am) Substance used: Marijuana Allergies/Home Meds Allergies/Adverse Reactions: Allergies No Known Allergies Allergy (Verified 11/13/16 03:05) Home Medications: Home Meds Medication Instructions Recorded Confirmed No Known Home Med 08/08/17 08/08/17 Review of Systems - Review of Systems Constitutional: Normal Eyes: Normal ENT: Normal Respiratory: Normal Cardiovascular: Normal Gastrointestinal: Normal. absent: Abdominal Pain, Vomiting Genitourinary Male: Normal, Dysuria. absent: Hematuria Musculoskeletal: Normal Skin: Normal Neurological: Normal Endocrine: Normal Hemo/Lymphatic: Normal Psychiatric: Normal Physical Exam Vital Signs Reviewed: Yes Vital Signs Temp Pulse Resp BP Pulse Ox 08/08/17 18:47 97.9 F 81 17 125/81 100 Temperature: Afebrile Blood Pressure: Normal Pulse: Regular Respiratory Rate: Normal Appearance: Positive for: Well-Appearing, Non-Toxic, Comfortable Pain Distress: None Mental Status: Positive for: Alert and Oriented X 3 - Systems Exam Conjunctiva: Present: Normal Mouth: Present: Moist Mucous Membranes, Normal Lips. No: Drooling Pharnyx: No: ERYTHEMA Neck: Present: Trachea Midline Respiratory/Chest: Present: Clear to Auscultation, Good Air Exchange. No: Respiratory Distress, Accessory Muscle Use Cardiovascular: Present: Regular Rate and Rhythm, Normal S1, S2. No: Murmurs Abdomen: Present: Normal Bowel Sounds. No: Tenderness, Distention, Peritoneal Signs, Rebound, Guarding Genitourinary Male: Present: Other (refused) Back: No: CVA Tenderness Upper Extremity: Present: Normal ROM Lower Extremity: Present: Edema Neurological: Present: GCS=15, Speech Normal Skin: Present: Warm, Dry, Normal Color. No: Rashes Psychiatric: Present: Alert, Oriented x 3 Medical Decision Making ED Course and Treatment: 08/08/17 18:54 On re-evaluation, pt is afebrile, hemodynamicaly stable. Non-toxic. Ambulatory in ED with stable gait. Neck: Supple, (-) meningeal sign ENT: no acute findings Abd: benign. back: (-) CVA tenderness Neurologicaly intact. UA results review and appears normal. Pt has clinical findings c/w urethritis r/o STD. Pt advised. ref. to F/u with PMD, urology in 2-3 days for re-eval. return to ED if any worsening or new changes. - Lab Interpretations Lab Results: Lab Results 08/08/17 18:30: Urine Color Yellow, Urine Appearance Clear, Urine pH 7.0, Ur Specific [place] 1.020, Urine Protein Negative, Urine Glucose (UA) Negative, Urine Ketones Negative, Urine Blood Negative, Urine Nitrate Negative, Urine Bilirubin Negative, Urine Urobilinogen 0.2, Ur Leukocyte Esterase Negative - Medication Orders Current Medication Orders: Discontinued Medications Azithromycin (Zithromax) 1,000 mg PO STAT STA PRN Reason: Protocol Stop: 08/08/17 18:52 Last Admin: 08/08/17 19:12 Dose: 1,000 mg Ceftriaxone Sodium (Rocephin) 250 mg IM STAT STA PRN Reason: Protocol Stop: 08/08/17 18:52 Last Admin: 08/08/17 19:12 Dose: 250 mg IM Administration Charges Document 08/08/17 19:12 AB (Rec: 08/08/17 19:12 AB [facility] [place]-[id number]) Injection Site MAR Injection Site Left Deltoid Charges for Administration # of IM Administrations 1 Disposition/Present on Arrival - Present on Arrival Any Indicators Present on Arrival: No History of DVT/PE: No History of Uncontrolled Diabetes: No Urinary Catheter: No History of Decub. Ulcer: No History Surgical Site Infection Following: None - Disposition Have Diagnosis and Disposition been Completed?: Yes Diagnosis: Urethritis Disposition: HOME/ ROUTINE Disposition Time: 18:55 Patient Plan: Discharge Patient Problems: Current Active Problems Problem Status Onset Urethritis Acute Condition: STABLE Discharge Instructions (ExitCare): Nonspecific Urethritis in Men (ED) Additional Instructions: ENCOURAGE PARTNER(S) TO BE CHECKED AND TREATED FOLLOW UP WITH PMD, UROLOGY IN 2-3 DAYS FOR RE-EVALUATION. RETURN TO ED IF ANY WORSENING OR NEW CHANGES. Referrals: [facility] at [facility] [place] [Outside] - Follow up with primary Harshal Morillo MD [Staff Provider] - Follow up with primary Forms: [employer] (Pakistani)
[2017-08-08 19:03] LABS: URINE BILIRUBIN NEGATIVE (NEGATIVE); URINE BLOOD NEGATIVE (NEGATIVE); URINE GLUCOSE (UA) NEGATIVE (NEGATIVE); URINE KETONE NEGATIVE (NEGATIVE); URINE LEUKOCYTE ESTERASE NEGATIVE Leu/uL (NEGATIVE); URINE PROTEIN NEGATIVE mg/dL (<30 mg/dL); URINE UROBILINOGEN 0.2 E.U./dL (<1 E.U./dL)
[2017-08-08 19:07] LABS: URINE APPEARANCE CLEAR (CLEAR); URINE COLOR YELLOW (YELLOW)
[2017-08-08 19:39] VITALS: BP 122/86; TEMP 97.6
== END 2017-08-08 19:39 | disposition home or self-care (01) ==
LOC: ED 17:54
DX: N34.2 Other urethritis (principal)
CPT/HCPCS: 81003; 87086; 87491; 87591; 96372; 99283; J0696